=== PATIENT | female | born 1970 | race Caucasian/White ===

== ENCOUNTER 2016-08-27 18:35 | Emergency (ER) | payer MEDICAID ==
[~2016-08-27] VITALS: Ht 171.4 cm; Wt 147.4 kg
[~2016-08-27 18:35] MED LIST: ADVAIR 10028 PUFF/IN IH; ALBUTEROL2 PUFFS/17 IN; AMLODIPINE5 M1 PO; BUPROPION HYDR150 M3 PO; CIPRO 250MG TA250 MG PO; CYMBALTA30 MG PO; DITROPAN 5MG TAB5 MG PO; DOLOBID 500MG500 MG PO; DOXYCYCLINE HY100 M4 PO; FLEXERIL10 M1 PO; FLEXERIL10 MG PO; FUROSEMIDE 40MG40 M1 PO; GABAPENTIN 600600 MG PO; IBU-8800 MG PO; K + POTASSIUM20 MEQ PO; KEFLEX 500MG.500 MG PO; KLONOPIN 0.5MG0.5 MG PO; LORATADINE 10MG10 M1 PO; LORTAB 5/500 501 TAB PO; LYRICA25 MG PO; MEDROL 4MG. DOSE4 MG PO; MONTELUKAST SOD10 MG PO; MORPHINE SULFAT30 M3 PO; MOTRIN600 M1 PO; NAPROSYN 500MG500 MG PO; NAPROSYN500 M1 PO; NORCO 325 MG-101 TAB PO; OXYCODONE CR10 MG PO; PERCOCET 650 MG1 TAB PO; PHENERGAN 12.12.5 M1 PO; PHENTERMINE37.5 MG PO; PREDNISONE 20MG20 MG PO; ROBAXIN 500 MG500 MG PO; SPIRIVA HA1 PUFF/INH IN; STERAPRED DS10 MG PO; TESSALON PERLE100 M1 PO; TIZANIDINE HCL 44 MG NG; TOPIRAMATE200 MG PO; VOLTAREN50 MG PO; ZITHROMAX Z PA250 MG PO
[2016-08-27] MEDS ORDERED: PROMETHAZINE-D473 ML PO (19:15)
[2016-08-27] MEDS ORDERED: MEDROL 4MG. DOSE4 MG PO (19:15)
[2016-08-27] MEDS ORDERED: KEFLEX 500MG.500 MG PO (19:15)
--- NOTE | 2016-08-27 19:16 | Emergency Room Report ---
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 N Clinical Suspician of Infection? N Mental Status: 1 - Regular (Normal Baseline) Sepsis Risk:Low Sepsis Risk Have you (or family members/close friends) recently traveled outside the [place]? N If Yes, where/when: Have you had exposure to infectious disease within the past month? TB? Other? Specify: Source patient, RN notes reviewed Exam Limitations no limitations Comment Pt presents with cough, chest congestion, and bilateral ear pain for 2 days. Reports that she started Mucinex today that seemed to help. Timing/Duration days Severity mild Associated Symptoms chills, cough, fever, headache, shortness of breath, sore throat ALLERGIES Coded Allergies: rizatriptan (From MAXALT) (Mild, 08/27/16) zolmitriptan (From ZOMIG) (Mild, 08/27/16) Home Medications Active Scripts Ibuprofen (Motrin) 600 MG PO Q6HP PRN pain #20 TAB Prov: 10/04/14 Methocarbamol (Robaxin 500MG) 500 MG PO Q8H #20 TAB Prov: 10/04/14 Albuterol (Albuterol Inhaler 17GM) 2 PUFF IN Q4HP #1 INH Prov: 09/06/10 Reported Medications Furosemide 40 MG PO BID #60 Oxybutynin Chloride (Ditropan 5MG Tab) 5 MG PO DAILY #60 Topiramate 200 MG PO BID #60 TIZANIDINE HCL (Tizanidine Hcl 4 Mg Tablet) 4 MG NG DAILY #90 Montelukast Sodium 10 MG PO DAILY #30 Tiotropium [place] (Spiriva) 1 PUFF IN DAILY Clonazepam (Klonopin 0.5MG) 2 MG PO TID Gabapentin (Gabapentin 600MG) 600 MG PO TID Amlodipine Besylate (Amlodipine) 5 MG PO DAILY HYDROCODONE/ACETAMINOPHEN ([place] 10-325 Tablet) 1 TAB PO QID DULOXETINE HCL (Cymbalta 30MG) 30 MG PO DAILY (MIGUEL ANDUJAR, FAYE) History Medical History General Angina: Yes [place]: No Hypertension? Yes Hyperlipidemia? No CHF? No COPD? Yes Asthma? Yes Anemia? No Hernia? No CVA? No Seizures? Yes Diabetes? No UTI? No Stones? No GB Disease: Yes Hepatitis? No Cataracts? No Glaucoma? No MRSA? No TB? No Cancer? 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 Respiratory cough, wheezing (MIGUEL ANDUJAR, FAYE) Physical Exam Vital Signs Vital Signs Date Time Temp Pulse Resp B/P Pulse O2 O2 Flow FiO2 Ox Delivery Rate 08/27 1918 98.7 90 18 135/98 97 08/27 1846 98.7 90 18 135/98 97 General Appearance normal appearance, WD/WN, obese Eye Exam - bilateral eye normal exam, bilateral eye PERRL, bilateral eye EOMI Ear, Nose, Throat hearing grossly normal, abnormal TM (R), abnormal TM (L), sinus pain/drainage, nasal congestion Neck normal inspection, non-tender, supple, full range of motion Respiratory Status Yes: trachea midline, chest symmetrical, non tender chest. No: respiratory distress. Lung Sounds bilateral: wheezing, inspiration, expiration. Cardiovascular normal exam, regular rate/rhythm, no peripheral edema, no gallop, no JVD, no murmur, no rub, normal peripheral pulses Peripheral Pulses Pulses normal Yes Gastrointestinal normal bowel sounds, normal exam, non tender, soft, no organomegaly Extremities non-tender, normal range of motion, normal inspection Neurologic alert, grape pruner II-XII nml as tested, normal exam, oriented x 3 Mental status normal mood/affect Skin intact, normal color, warm/dry Lymphatic no adenopathy (FAYE SANTOS) Medical Decision Making LABS/Meds/Orders Pt receiving controlled substance in ED? No (FAYE SANTOS) Progress - I have discussed the patient's case with the mid-level practitioner. I agree with the the management and disposition based upon the information reported to me. (Hi Adorno MD) Departure Departure Time of Disposition 1907 Disposition DC Home or Self Care(routine) Clinical Impression Primary Impression: Bilateral acute otitis media Secondary Impressions: Acute bronchitis Qualifiers: Bronchitis organism: unspecified organism Qualified Code: J20.9 - Acute bronchitis, unspecified Acute sinusitis Qualifiers: Sinusitis location: unspecified location Recurrence: not specified as recurrent Qualified Code: J01.90 - Acute sinusitis, unspecified Condition STABLE Patient Instructions DI for Acute Bronchitis, DI for Otitis Media (Middle Ear Infection)-Child Additional Instructions Increase fluids, warm salt water gargles for throat. Stop smoking. F/U with PCP in 2-3 days for recheck. Discharge Counseling Counseled pt/family regarding diagnosis, medications/RX, home care, follow up needs Prescriptions Current Visit Scripts CEPHALEXIN (Keflex 500MG Capsule) 500 MG PO Q12H 10 Days Methylprednisolone (Medrol Dose Nadir) 4 MG PO UD #1 NADIR TAKE DIRECTED ON PACKAGING Promethazine/Dextromethorphan (Promethazine-Dm Solution) 480 ML PO Q4HP PRN cough 10 Days ED Critical Care Critical Care No Comments Increase fluids, warm salt water gargles for throat. Stop smoking. F/U with PCP in 2-3 days for recheck. (FAYE SANTOS) at 1933 at 1941
--- NOTE | 2016-08-27 19:16 | Emergency Room Report ---
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 N Clinical Suspician of Infection? N Mental Status: 1 - Regular (Normal Baseline) Sepsis Risk:Low Sepsis Risk Have you (or family members/close friends) recently traveled outside the [place]? N If Yes, where/when: Have you had exposure to infectious disease within the past month? TB? Other? Specify: Source patient, RN notes reviewed Exam Limitations no limitations Comment Pt presents with cough, chest congestion, and bilateral ear pain for 2 days. Reports that she started Mucinex today that seemed to help. Timing/Duration days Severity mild Associated Symptoms chills, cough, fever, headache, shortness of breath, sore throat ALLERGIES Coded Allergies: rizatriptan (From MAXALT) (Mild, 08/27/16) zolmitriptan (From ZOMIG) (Mild, 08/27/16) Home Medications Active Scripts Ibuprofen (Motrin) 600 MG PO Q6HP PRN pain #20 TAB Prov: 10/04/14 Methocarbamol (Robaxin 500MG) 500 MG PO Q8H #20 TAB Prov: 10/04/14 Albuterol (Albuterol Inhaler 17GM) 2 PUFF IN Q4HP #1 INH Prov: 09/06/10 Reported Medications Furosemide 40 MG PO BID #60 Oxybutynin Chloride (Ditropan 5MG Tab) 5 MG PO DAILY #60 Topiramate 200 MG PO BID #60 TIZANIDINE HCL (Tizanidine Hcl 4 Mg Tablet) 4 MG NG DAILY #90 Montelukast Sodium 10 MG PO DAILY #30 Tiotropium [place] (Spiriva) 1 PUFF IN DAILY Clonazepam (Klonopin 0.5MG) 2 MG PO TID Gabapentin (Gabapentin 600MG) 600 MG PO TID Amlodipine Besylate (Amlodipine) 5 MG PO DAILY HYDROCODONE/ACETAMINOPHEN ([place] 10-325 Tablet) 1 TAB PO QID DULOXETINE HCL (Cymbalta 30MG) 30 MG PO DAILY (MIGUEL ANDUJAR, FAYE) History Medical History General Angina: Yes [place]: No Hypertension? Yes Hyperlipidemia? No CHF? No COPD? Yes Asthma? Yes Anemia? No Hernia? No CVA? No Seizures? Yes Diabetes? No UTI? No Stones? No GB Disease: Yes Hepatitis? No Cataracts? No Glaucoma? No MRSA? No TB? No Cancer? 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 Respiratory cough, wheezing (MIGUEL ANDUJAR, FAYE) Physical Exam Vital Signs Vital Signs Date Time Temp Pulse Resp B/P Pulse O2 O2 Flow FiO2 Ox Delivery Rate 08/27 1918 98.7 90 18 135/98 97 08/27 1846 98.7 90 18 135/98 97 General Appearance normal appearance, WD/WN, obese Eye Exam - bilateral eye normal exam, bilateral eye PERRL, bilateral eye EOMI Ear, Nose, Throat hearing grossly normal, abnormal TM (R), abnormal TM (L), sinus pain/drainage, nasal congestion Neck normal inspection, non-tender, supple, full range of motion Respiratory Status Yes: trachea midline, chest symmetrical, non tender chest. No: respiratory distress. Lung Sounds bilateral: wheezing, inspiration, expiration. 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 No (FAYE SANTOS) Progress - I have discussed the patient's case with the mid-level practitioner. I agree with the the management and disposition based upon the information reported to me. (Hi Adorno MD) Departure Departure Time of Disposition 1907 Disposition DC Home or Self Care(routine) Clinical Impression Primary Impression: Bilateral acute otitis media Secondary Impressions: Acute bronchitis Qualifiers: Bronchitis organism: unspecified organism Qualified Code: J20.9 - Acute bronchitis, unspecified Acute sinusitis Qualifiers: Sinusitis location: unspecified location Recurrence: not specified as recurrent Qualified Code: J01.90 - Acute sinusitis, unspecified Condition STABLE Patient Instructions DI for Acute Bronchitis, DI for Otitis Media (Middle Ear Infection)-Child Additional Instructions Increase fluids, warm salt water gargles for throat. Stop smoking. F/U with PCP in 2-3 days for recheck. Discharge Counseling Counseled pt/family regarding diagnosis, medications/RX, home care, follow up needs Prescriptions Current Visit Scripts CEPHALEXIN (Keflex 500MG Capsule) 500 MG PO Q12H 10 Days Methylprednisolone (Medrol Dose Nadir) 4 MG PO UD #1 NADIR TAKE DIRECTED ON PACKAGING Promethazine/Dextromethorphan (Promethazine-Dm Solution) 480 ML PO Q4HP PRN cough 10 Days ED Critical Care Critical Care No Comments Increase fluids, warm salt water gargles for throat. Stop smoking. F/U with PCP in 2-3 days for recheck. (FAYE SANTOS) at 1933 at 1941
[2016-08-27 19:18] VITALS: BP 135/98
== END 2016-08-27 19:19 | disposition home or self-care (01) ==
LOC: ER 18:35
DX: H66.93 Otitis media, unspecified, bilateral (principal); J20.9 Acute bronchitis, unspecified; J01.90 Acute sinusitis, unspecified; Z72.0 Tobacco use; I10 Essential (primary) hypertension; J44.9 Chronic obstructive pulmonary disease, unspecified

== ENCOUNTER → 2017-05-20 | Outpatient (CLI) | payer MEDICAID ==
[~2017-05-20] MED LIST changes: +PROMETHAZINE-D473 ML PO; +TOPAMAX200 MG PO; +VOLTAREN50 MG TP
[2017-05-20 17:26] LABS: AMPHETAMINES/METAMPHETAMINES NEGATIVE ng/mL (<1000)
== END ==
LOC: LAB 15:47
PROVIDERS: Nurse Practitioner Family
DX: Z79.899 Other long term (current) drug therapy (principal)

== ENCOUNTER 2017-06-24 18:50 | Emergency (ER) | payer MEDICAID ==
[~2017-06-24] VITALS: Ht 171.4 cm; Wt 148.3 kg
--- OUTSIDE RECORDS SUMMARY | 2017-06-24 18:58 | External Medical Summary Rpt | CCD ---
Author Author , DARÍO Organization DARÍO Address Unknown Phone [email or web address] Care Team Providers Care Manager Drug Safety Name Role Phone TOMA WITT DO, Unavailable Unavailable TOMA WITT DO Purpose Continuity of Care Document - 09-30-2013 through 2016 Problems Code Diagnosis DOS Provider Status 401.9 401.9 09-30-2013 [place] HYPERTENSIO [facility] N NOS Hospital 493.90 493.90 09-30-2013 [place] ASTHMA, [facility] UNSPECIFIED Hospital 780.39 780.39 09-30-2013 [place] OTHER [facility] CONVULSIONS Hospital 924.11 924.11 09-30-2013 [place] CONTUSION [facility] OF KNEE [facility] E66.01 MORBID (SEVERE) OBESITY DUE TO EXCESS CALORIES H66.93 OTITIS MEDIA, UNSPECIFIED , BILATERAL J20.9 ACUTE BRONCHITIS, UNSPECIFIED M25.561 PAIN IN RIGHT KNEE R07.89 OTHER CHEST PAIN R51 HEADACHE R56.9 UNSPECIFIED CONVULSIONS S10.93XA CONTUSION OF UNSPECIFIED PART OF NECK, INITIAL ENCOUNTER S40.019A CONTUSION OF UNSPECIFIED SHOULDER, INITIAL ENCOUNTER S83.429A SPRAIN OF LATERAL COLLATERAL LIGAMENT OF UNSP KNEE, INIT Z87.898 PERSONAL HISTORY OF OTHER SPECIFIED CONDITIONS Allergies, Adverse Reactions, Alerts Type Allergy to substance Drug Allergy Adverse Reaction to Substance Substance Reaction Severity INGREDIENT: UNCODED - Unknown Unknown UNCODED ALLERGEN - REVIEW Felbamate Unknown Unknown Zolmitriptan TACHYCARDIC Severe Rizatriptan TACHYCARDY Severe Results Labs Lab Lab Date Result Refere Interp Status Commen Order Detail nces retati t Range on Drugs identified in Urine by Screen method (05-20-2017 14:00) Ampheta NEGATIV <1000 complet mine 017 E ed [Presen 14:00 ce] in Urine by Screen method 11- NEGATIV <50 complet oxy 017 E ed delta-9 14:00 tetrahy drocann abinol [Presen ce] in Unspeci fied specime n Drugs identified in Urine by Screen method (02-06-2017 16:00) Ampheta NEGATIV <1000 complet mine 017 E ed [Presen 16:00 ce] in Urine by Screen method NEGATIV <50 complet oxy 017 E ed delta-9 16:00 tetrahy drocann abinol [Presen ce] in Unspeci fied specime n Encounters Encounter Start End Date Code Location Performer Type Date Emergency SU WITT DO (ER) 4 10:23 4 11:50 [facility]
--- OUTSIDE RECORDS SUMMARY | 2017-06-24 18:58 | External Medical Summary Rpt | CCD ---
Author Author , DARÍO Organization DARÍO Address Unknown Phone [email or web address] Care Team Providers Care Aircraft Cleaning Supervisor Name Role Phone TOMA WITT DO, Unavailable Unavailable TOMA WITT DO Purpose Continuity of Care Document - 09-30-2013 through 2016 Problems Code Diagnosis DOS Provider Status 401.9 401.9 09-30-2013 [place] HYPERTENSIO [facility] N NOS Hospital 493.90 493.90 09-30-2013 [place] ASTHMA, [facility] UNSPECIFIED Hospital 780.39 780.39 09-30-2013 [place] OTHER [facility] CONVULSIONS Hospital 924.11 924.11 09-30-2013 [place] CONTUSION [facility] OF KNEE [facility] E66.01 MORBID (SEVERE) OBESITY DUE TO EXCESS [...] WITT DO (ER) 4 10:23 4 11:50 [facility]
--- OUTSIDE RECORDS SUMMARY | 2017-06-24 19:00 | External Medical Summary Rpt | CCD ---
Demographics Preferred Language Mosotho Marital Status Unknown Gnosticism Affiliation Unknown Race Unknown Ethnic Group Unknown Author Author , DARÍO CHANEL Address Unknown Phone Immunization Unable to retrieve immunization data due to connection failure with Immunization Registry. Please try again later.
--- OUTSIDE RECORDS SUMMARY | 2017-06-24 19:00 | External Medical Summary Rpt | CCD ---
Demographics Preferred Language Malawian Marital Status Unknown Jehovah'S Witness Affiliation Unknown Race Unknown Ethnic Group Unknown Author Author , DARÍO CHANEL Address Unknown Phone Immunization Unable to retrieve immunization data due to connection failure with Immunization Registry. Please try again later.
--- OUTSIDE RECORDS SUMMARY | 2017-06-24 19:00 | External Medical Summary Rpt ---
Author Author DARÍO Alden, DARÍO [employer] Organization [employer] Address Unknown Phone Unavailable Results Drugs identified in Urine by Screen method Observa Value Referen Units Interpr Notes Date tion ce etation Range Positive urine drug screen samples are stored for 7 days. Contact the Lab if confirmation of positives is needed. Ampheta NEGATIV <1000 ng/mL No No Oct 3 mine E informa informa 2017 [Presen tion in tion in 2:00 PM ce] in source source Urine data data by Screen method Barbitura <200 ng/mL No No Oct 3 janis informati informati 2017 2:00 [Mass/vol on in on in PM ume] in source source Urine by data data Screen method Benzodiaz 200 ng/mL ng/mL No No Oct 3 epines informati informati 2017 2:00 [Mass/vol on in on in PM ume] in source source Serum or data data Plasma by Screen method Cocaine <300 ng/g No No Oct 3 [Mass/vol informati informati 2017 2:00 ume] in on in on in PM Unspecifi source source ed data data specimen Methadone <300 ng/mL No No Oct 3 informati informati 2017 2:00 [Mass/vol on in on in PM ume] in source source Unspecifi data data ed specimen Opiates <300 ng/mL No No Oct 3 [Mass/vol informati informati 2017 2:00 ume] in on in on in PM Unspecifi source source ed data data specimen Phencycli <25 ng/mL No No Oct 3 dine informati informati 2017 2:00 [Mass/vol on in on in PM ume] in source source Unspecifi data data ed specimen 11-Hydr NEGATIV <50 ng/mL No No Oct 3 oxy E informa informa 2017 delta-9 tion in tion in 2:00 PM source source tetrahy data data drocann abinol [Presen ce] in Unspeci fied specime n Drugs identified in Urine by Screen method Observa Value Referen Units Interpr Notes Date tion ce etation Range Positive urine drug screen samples are stored for 7 days. Contact the Lab if confirmation of positives is needed. Ampheta NEGATIV <1000 ng/mL No No Feb 06 mine E informa informa 2016 [Presen tion in tion in 4:00 PM ce] in source source Urine data data by Screen method Barbitura <200 ng/mL No No Feb 06 janis informati informati 2016 4:00 [Mass/vol on in on in PM ume] in source source Urine by data data Screen method Benzodiaz 200 ng/mL ng/mL No No Feb 06 epines informati informati 2016 4:00 [Mass/vol on in on in PM ume] in source source Serum or data data Plasma by Screen method Cocaine <300 ng/g No No Feb 06 [Mass/vol informati informati 2016 4:00 ume] in on in on in PM Unspecifi source source ed data data specimen Methadone <300 ng/mL No No Feb 06 informati informati 2016 4:00 [Mass/vol on in on in PM ume] in source source Unspecifi data data ed specimen Opiates <300 ng/mL No No Feb 06 [Mass/vol informati informati 2016 4:00 ume] in on in on in PM Unspecifi source source ed data data specimen Phencycli <25 ng/mL No No Feb 06 dine informati informati 2016 4:00 [Mass/vol on in on in PM ume] in source source Unspecifi data data ed specimen 11-Hydr NEGATIV <50 ng/mL No No Feb 06 oxy E informa informa 2017 delta-9 tion in tion in 4:00 PM source source tetrahy data data drocann abinol [Presen ce] in Unspeci fied specime n CBC W Auto Differential panel in Blood Observa Value Referen Units Interpr Notes Date tion ce etation Range Basophils 0 - 0.2 K/MM3 Normal No January 08ati 2016 3:30 [#/volume on in PM ] in source Blood by data Automated count Basophils 0.1 - 2.0 % Normal No January 08 informati 2016 3:30 leukocyte on in PM s in source Blood by data Automated count Eosinophi 0.0 - 0.4 K/mm3 High No January 08 ls informati 2016 3:30 [#/volume on in PM ] in source Blood by data Automated count Eosinophi 0.1 - % Normal No January 08 ls/100 12.0 informati 2016 3:30 leukocyte on in PM s in source Blood by data Automated count Granulocy 1.8 - 7.8 K/mm3 Normal No January 08 janis informati 2016 3:30 [#/volume on in PM ] in source Blood by data Automated count Granulocy 37.0 - % Normal No January 08 janis/100 80.0 informati 2016 3:30 leukocyte on in PM s in source Blood by data Automated count Hematocri 37.0 - % Normal No January 08 t [Volume 47.0 informati 2016 3:30 on in PM Fraction] source of Blood data Hemoglobi 12.2 - g/dL No January 08 n 16.2 informati informati 2016 3:30 [Mass/vol on in on in PM ume] in source source Blood data data Lymphocyt 0.7 - 4.5 K/mm3 Normal No January 08 es informati 2016 3:30 [#/volume on in PM ] in source Unspecifi data ed specimen by Automated count Lymphocyt 10 - 50.0 % Normal No January 08 es informati 2016 3:30 [#/volume on in PM ] in source Unspecifi data ed specimen by Automated count Erythrocy 27 - 31.2 pg High No January 08 te mean informati 2016 3:30 corpuscul on in PM ar source hemoglobi data n [Entitic mass] Erythrocy 31.8 - g/dl Normal No January 08 te mean 35.4 informati 2016 3:30 corpuscul on in PM ar source hemoglobi data n concentra tion [Mass/vol ume] by Automated count Erythrocy 82.2 - fl Normal No January 08 te mean 97.8 informati 2016 3:30 corpuscul on in PM ar volume source [Entitic data volume] by Automated count Monocytes 0.1 - 1.0 K/mm3 Normal No January 08 informati 2016 3:30 [#/volume on in PM ] in source Blood by data Automated count Monocytes 1.7 - 9.3 % Normal No January 08 /100 informati 2016 3:30 leukocyte on in PM s in source Blood by data Automated count Platelet 7.4 - fl Low No January 08 mean 10.4 informati 2016 3:30 volume on in PM [Entitic source volume] data in Blood by Automated count Platelets 142 - 424 K/mm3 Normal No January 08 informati 2016 3:30 [#/volume on in PM ] in source Blood data Erythrocy 4.2 - 5.4 M/mm3 Normal No January 08 janis informati 2016 3:30 [#/volume on in PM ] in source Amniotic data fluid Erythrocy 11.5 - % Normal January 08 te 17.5 informati 2016 3:30 distribut on in PM ion width source [Entitic data volume] by Automated count Leukocyte 4.8 - K/MM3 High No January 08 s 10.8 informati 2016 3:30 [#/volume on in PM ] in source Blood data
[2017-06-24] MEDS ORDERED: PROMETHAZINE D118 ML PO (20:03)
[2017-06-24] MEDS ORDERED: PREDNISONE 20MG20 MG PO (20:03)
[2017-06-24 20:04] VITALS: BP 142/72
--- NOTE | 2017-06-24 20:04 | Urgent Treatment Center Report ---
History of Present Issue Date/Time Seen by Provider 06/24/17 1901 Visit Reason Pt arrived:Walked Presenting Problem:BEEN ON Z PACK AND KELFEX BEEN SICK 2 WEEKS. SORE THROAT BODY ACHES AND COUGH Location if Accident: Onset of symptoms date/time:/ or onset unknown for:MEDICAL HX UNKNOWN Have you (or family members/close friends) recently traveled outside the [place]? N If Yes, where/when: Have you had exposure to infectious disease within the past month? TB? Other? Specify: c/o persistant cough and chest congestion x 1.5-2 weeks. Saw PCP, Nelly, "week before last" and was started on zpack. Completed zpack but no improvement. Followed up "sometime last week". pt thinks Friday but daughter thinks Friday. Started on keflex 500mg BID. Still no improvement. "I can't stop coughing". Hx of COPD. using 3 unknown daily inhalers and one rescue inhaler. Feels like rescue inhaler helps briefly once used. Wanting something for cough during the day as nyquil helps "but knocks me out". Feeling feverish every morning. Hasn't checked temp. Achy w/ chills. SOA. "Coughing so much I loose my breath". Wheezing. Noticed more when laying down. Source patient Exam Limitations no limitations ALLERGIES Coded Allergies: felbamate (From FELBATOL) (Intermediate, 01/08/17) rizatriptan (From MAXALT) (Mild, 08/27/16) zolmitriptan (From ZOMIG) (Mild, 08/27/16) Home Medications Active Scripts Topiramate (Topamax) 200 MG PO BID #20 TAB Prov: 01/08/17 Ibuprofen (Motrin) 600 MG PO Q6HP PRN pain #20 TAB Prov: 10/04/14 Albuterol (Albuterol Inhaler 17GM) 2 PUFF IN Q4HP #1 INH Prov: 09/06/10 Promethazine/Dextromethorphan (Promethazine-Dm Solution) 480 ML PO Q4HP PRN cough 10 Days Prov: 08/27/16 Reported Medications Furosemide 40 MG PO BID #60 Oxybutynin Chloride (Ditropan 5MG Tab) 5 MG PO DAILY #60 Topiramate 200 MG PO BID #60 TIZANIDINE HCL (Tizanidine Hcl 4 Mg Tablet) 4 MG NG DAILY #90 Montelukast Sodium 10 MG PO DAILY #30 Tiotropium [place] (Spiriva) 1 PUFF IN DAILY Clonazepam (Klonopin 0.5MG) 2 MG PO TID Gabapentin (Gabapentin 600MG) 600 MG PO TID Amlodipine Besylate (Amlodipine) 5 MG PO DAILY DULOXETINE HCL (Cymbalta 30MG) 30 MG PO DAILY Diclofenac Sodium (Voltaren 50mg) 50 MG TP DAILY History Medical History General Angina: Yes [place]: No Hypertension? Yes Hyperlipidemia? No CHF? No COPD? Yes Asthma? Yes Anemia? No Hernia? No CVA? No Seizures? Yes Diabetes? No UTI? No Stones? No GB Disease: Yes Hepatitis? No Cataracts? No Glaucoma? No MRSA? No TB? No Cancer? Yes Site: CERVICAL Immunization HX DT/Tetanus 03/13/2009 Flu NEVER Pneumonia NEVER Surgical Hx Previous Surgery?Y TONSILS [id number], 1999 LAP CHOLY-1997 WISDOM TEETH HARDIK FACIAL SURGERY-JAW WIRED LEFT KNEE Family History Family HX Diabetes Yes CAD Yes Hypertension Yes Hyperlipidemia Yes Cancer Yes TB No Social History Smoking Hx Smoker: Current Every Day Smoker Tobacco: Yes Type Cigarettes Packs/day 1 1/2 - 2 Packs Alcohol Alcohol: No Review of Systems All Other Systems Reviewed and Negative Constitutional see HPI Eyes denies drainage ENT see HPI, nose discharge, nose congestion, throat pain (at times). denies: ear pain. Respiratory see HPI, other (thick yellow sputum) Cardiovascular denies chest pain, denies palpitations Gastrointestinal denies no symptoms reported Musculoskeletal see HPI Skin denies rash Psychiatric/Neurological denies headache Physical Exam Vital Signs Vital Signs Date Time Temp Pulse Resp B/P Pulse O2 O2 Flow FiO2 Ox Delivery Rate 06/24 1914 98.3 88 20 142/72 98 General Appearance no apparent distress, obese Ear, Nose, Throat normal ENT inspection (x/ nasal congestion) Neck non-tender, supple Respiratory Status Yes: trachea midline, chest symmetrical, non productive cough (worse with deep breaths). No: respiratory distress, use of accessory muscles, pain on inspiration, pain on expiration. Lung Sounds bilateral: wheezing (end expiratory throughout). Cardiovascular regular rate/rhythm, no peripheral edema, no murmur Neurologic alert, oriented x 3 Mental status normal mood/affect Skin normal color Lymphatic no adenopathy Medical Decision Making LABS/Meds/Orders Pt receiving controlled substance in ED? No Results/Orders Current Medication Orders Sig/Pebbles Start time Last Medication Dose Route Stop Time Status Admin Albuterol/Ipratropium 0 .STK-MED ONE 06/24 1936 DC INH Methylprednisolone 0 .STK-MED ONE 06/24 1936 DC Sodium Succinate .ROUTE Albuterol/Ipratropium 3 ML ONCE ONE 06/24 1930 DC 06/24 INH 06/24 Methylprednisolone 125 MG ONCE ONE 06/24 1930 DC 06/24 Sodium Succinate IM 06/24 Orders Procedure Date/time Status RT REQUEST DUONEB 06/24 1924 Active CHEST(2 VIEWS-NOT PORTABLE) 06/24 1924 Active XRAY/CT/US XRAY/CT/US XRAY chest XR interpretation by reviewed by me (w/ Dr. Adorno, ) Xray Results no acute findings Progress [facility] Progress Notes Date 06/24/17 Time 1755 Comment pt feels steroid/neb has helped. Coughing more. "It opened me up". Departure Departure Time of Disposition 1954 Disposition DC Home or Self Care(routine) Clinical Impression Primary Impression: COPD with exacerbation Secondary Impressions: Tobacco abuse Condition STABLE Referrals Nelly Li APRN (Family) Call tomorrow and schedule follow up appointment. Let office know you were in [facility] tonight. Return to [facility]/ER for new or worsening symptoms if you can't get in to see Primary care Patient Instructions DI for Chronic Obstructive Pulmonary Disease Additional Instructions * STOP SMOKING!!!! * continue antibiotic * Monitor Temp. Feeling feverish is not the same as having a fever. Tylenol every 4 hours as needed no more then 5 times a day or 4000mg in 24 hours and/or ibuprofen every 6 hours as needed no more then 3200mg in 24 hours (as long as your primary care doctor has told you that it is ok to take both) for fever/ aches/pain. ER if fever no less than 101 despite tylenol and ibuprofen * humidifier/vaporizer/hot steamy shower * Albuterol Inhaler every 4-6 hours as needed like we discussed. You can discuss neb treatments with primary care. Should help open airways and improve cough, wheezing, shortness of breath. * Mucinex during the day for your cough and cough suppressant only at night. Be sure to drink lots of water. Insurance may not cover a prescription of mucinex. Might be cheaper to get 400mg tablets and take 2 tablets morning, midday and evening all with lots of water. * Promethazine DM cough syrup will cause drowsiness. Use it only at night. No driving, operating machinery or caring for small children after taking it. * Start steroid tomorrow since we gave you a steroid shot in clinic. Helps with inflammation therefore, cough and wheezing. Follow directions on package. Rvwd side effects. Pt reports they have taken them before. Discharge Counseling Counseled pt/family regarding diagnosis, test results, medications/RX, home care, follow up needs Prescriptions Current Visit Scripts PROMETHAZINE/DEXTROMETHORPHAN (Promethazine-Dm Syrup) 5-10 ML PO QHSP PRN cough #90 ML will cause drowsiness Prednisone (Prednisone 20MG) 20 MG PO BID #10 TAB start friday at 2004
--- NOTE | 2017-06-25 04:23 | RADIOLOGY REPORT PS360 ---
CHEST(2 VIEWS-NOT PORTABLE) HISTORY: cough, SOA, wheezing x 2 weeks, hx COPD tobacco abuse ORDERING PHYSICIAN: GA TAVARES APRN PATIENT AGE: 46 years COMPARISON: None available FINDINGS: The cardiomediastinal silhouette and pulmonary vascularity are within normal limits. The lungs are clear without infiltrates, suspicious nodules, or pleural effusions. No acute bony abnormalities. IMPRESSION: Negative chest, no acute finding
== END 2017-06-24 20:06 | disposition home or self-care (01) ==
LOC: UTC 18:50
DX: J44.1 Chronic obstructive pulmonary disease with (acute) exacerbation (principal); F17.210 Nicotine dependence, cigarettes, uncomplicated; I10 Essential (primary) hypertension; R56.9 Unspecified convulsions; Z79.899 Other long term (current) drug therapy